=== PATIENT | female | born 1955 | race Caucasian/White ===

== ENCOUNTER 2017-10-04 15:07 | Inpatient (IN) | END 2017-10-20 15:15 | disposition home health service (06) | DRG 673 ==

== ENCOUNTER 2018-01-31 20:22 | Observation (INO) | END 2018-02-01 11:30 | disposition home or self-care (01) ==

== ENCOUNTER 2018-02-24 20:00 | Emergency (ER) | END 2018-02-24 23:47 | disposition home or self-care (01) ==

== ENCOUNTER 2018-12-09 06:48 | Emergency (ER) | payer OTHER ==
[~2018-12-09] VITALS: Ht 165.1 cm; Wt 70.0 kg
[~2018-12-09 06:48] MED LIST: ATOR40TA68 PO; BEN25 PO; CALC667C PO; CHOL400T10 PO; CLON-379 PO; FOLI-49 PO; GABA100C14 PO; GABA300C16 PO; HYDR-3671 PO; INSU100I33 SC; METO-448 PO; NEPH PO
[2018-12-09 07:02] VITALS: Ht 165.1 cm; Wt 70.0 kg
--- NOTE | 2018-12-09 07:59 | ERD ---
ER Documentation Chief Complaint Chief Complaint Numbness left arm since yesterday 11am after dialysis HPI This is a 63-year-old female with a history of hypertension, peripheral neuropathy, end-stage renal disease, hyperlipidemia who presents to the emergency room for evaluation of numbness and tingling in the left arm and left lower extremity. The patient states that she has had these symptoms on and off since 11 AM on December 08. The patient does state that it does feel similar to previous neuropathy. She was at her dialysis center and was instructed to come to the emergency room for further evaluation. The patient denies any weakness, she denies any chest pain or shortness of breath or nausea or vomiting. ROS All systems reviewed and are negative except as per history of present illness. Medications Home Meds Reported Medications Clonidine Hcl* (Clonidine Hcl*) 0.1 Mg Tab, 0.1 MG PO NEEDED, TAB 08/31/18 Cholecalciferol* (Vitamin D*) 400 Unit Tablet, 400 UNIT PO DAILY, TAB 08/31/18 Folic Acid* (Folic Acid*) 1 Mg Tablet, 1 MG PO DAILY, TAB 08/31/18 Insulin Glargine,Hum.rec.anlog (Basaglar Kwikpen U-100) 100 Unit/1 Ml Insuln.pen, 7 UNIT SC QHS, EA 08/31/18 Atorvastatin* (Atorvastatin*) 40 Mg Tablet, 40 MG PO QHS, #30 TAB 08/31/18 Hydralazine Hcl* (Hydralazine Hcl*) 25 Mg Tab, 25 MG PO Q8, #90 TAB 08/31/18 Calcium Acetate* (Calcium Acetate*) 667 Mg Capsule, 1334 MG PO WITH MEALS, #60 CAP 08/31/18 Gabapentin* (Gabapentin*) 300 Mg Capsule, 300 MG PO QHS, #60 CAP 08/31/18 Gabapentin* (Gabapentin*) 100 Mg Capsule, 100 MG PO BID, #90 CAP 08/31/18 Diphenhydramine Hcl* (Benadryl*) 25 Mg Cap, 25 MG PO BID PRN for ITCHING, CAP 08/31/18 Metoprolol Tartrate* (Lopressor*) 25 Mg Tab, 25 MG PO BID, #60 TAB 08/31/18 Multivit/Ca Carb/B Cmplx/Fa* (Madison-Agustin*) 1 Tab Tab, 1 TAB PO DAILY, TAB 08/31/18 Allergies Allergies: Coded Allergies: No Known Allergy (Unverified , 08/31/18) PMhx/Soc History of Surgery: Yes (2 C SECTION LYPOSECTION HEAMOROIDECTOMY APENDECTOMY) Anesthesia Reaction: Yes Hx Neurological Disorder: Yes (ANXIETY) Hx Respiratory Disorders: No Hx Cardiac Disorders: Yes (HTN) Hx Psychiatric Problems: Yes (ANXIETY) Hx Miscellaneous Medical Probl: Yes (ON DIALYSIS) Hx Alcohol Use: No Hx Substance Use: No Hx Tobacco Use: No Smoking Status: Never smoker Physical Exam Vitals Vital Signs Date Temp Pulse Resp B/P (MAP) Pulse Ox O2 O2 Flow FiO2 Time Delivery Rate 12/09/18 97.8 77 18 164/61 96 07:02 (95) Physical Exam INITIAL VITAL SIGNS: Reviewed by me GENERAL: The patient is well developed and appropriate for usual state of health in no apparent distress HEENT: Pupils equal, round, and reactive to light. EOMI. There is no scleral icterus. NECK: C-spine is soft and supple, there is no meningismus. There is no cervical lymphadenopathy. LUNGS: Clear to auscultation bilaterally. There are no rales, wheezes or rhonchi. HEART: Regular rate and rhythm, no murmurs, clicks, rubs or gallops. ABDOMEN: Soft, non-tender, non-distended. There are bowel sounds in all four quadrants. No rebound or guarding. EXTREMITIES: There is no peripheral cyanosis or edema. No focal swelling or erythema. NEUROLOGICAL: The patient moves all four extremities with 5/5 strength. Cranial nerves II - XII are intact. Normal gait. Alert and oriented person place and time with no focal neurological deficits. Sensation is intact and symmetric in upper and lower extreme is bilaterally SKIN: Dialysis catheter in right anterior chest wall, there is no apparent rash or petechiae. HEME/LYMPHATIC: There is no evidence of excessive bruising or lymphedema. PSYCHIATRIC: The patient does not appear anxious or depressed. Result Diagram: 12/09/18 0750 12/09/18 0833 Results 24 hrs Laboratory Tests Test 12/09/18 07:50 12/09/18 08:33 White Blood Count 7.6 10^3/ul Red Blood Count 3.86 10^6/ul Hemoglobin 12.0 g/dl Hematocrit 37.6 % Mean Corpuscular Volume 97.4 fl Mean Corpuscular Hemoglobin 31.1 pg Mean Corpuscular Hemoglobin Concent 31.9 g/dl Red Cell Distribution Width 16.3 % Platelet Count 193 10^3/UL Mean Platelet Volume 11.4 fl Immature Granulocytes % 0.500 % Neutrophils % 78.8 % Lymphocytes % 11.9 % Monocytes % 8.0 % Eosinophils % 0.0 % Basophils % 0.8 % Nucleated Red Blood Cells % 0.0 /100WBC Immature Granulocytes # 0.040 10^3/ul Neutrophils # 6.0 10^3/ul Lymphocytes # 0.9 10^3/ul Monocytes # 0.6 10^3/ul Eosinophils # 0.0 10^3/ul Basophils # 0.1 10^3/ul Nucleated Red Blood Cells # 0.0 10^3/ul Sodium Level 144 mmol/L Potassium Level 5.5 mmol/L Chloride Level 100 mmol/L Carbon Dioxide Level 32 mmol/L Anion Gap 12 Blood Urea Nitrogen 44 mg/dl Creatinine 8.50 mg/dl Est Glomerular Filtrat Rate mL/min 5 mL/min Glucose Level 125 mg/dl Calcium Level 9.9 mg/dl Total Bilirubin 0.3 mg/dl Direct Bilirubin 0.00 mg/dl Indirect Bilirubin 0.3 mg/dl Aspartate Amino Transf (AST/SGOT) 14 IU/L Alanine Aminotransferase (ALT/SGPT) 15 IU/L Alkaline Phosphatase 99 IU/L Total Protein 7.9 g/dl Albumin 4.2 g/dl Globulin 3.70 g/dl Albumin/Globulin Ratio 1.13 Procedures/MDM This 63-year-old female presents to the ER for evaluation of numbness and tingling in the left upper extremity left lower extremity. On my exam the pat ient had no focal neurological deficits, she is alert and oriented x4 with 5 out of 5 strength in upper lower extremity's bilaterally. The patient was at dialysis and was complaining of some numbness and was sent to the ER for evaluation. The patient has no signs of CVA on my exam. She is on her cell phone as I am doing an examination and eating popcorn. The patient had a CT of the brain which is normal, lab work shows no acute abnormalities and the patient is requesting to go home. She will be discharged at this time with strict return precautions. She is on gabapentin and I advised her to continue taking and follow-up with her primary care for possible medication adjustment as she is likely suffering from peripheral neuropathy Departure Diagnosis: Primary Impression: Numbness Additional Impressions: Peripheral neuropathy End stage renal disease Condition: Fair JUSTYN HIRSCH DO December 09, 2018 07:59
[2018-12-09 09:23] VITALS: BP 152/94; PULSE 89; RESP 18
== END 2018-12-09 09:44 | disposition home or self-care (01) ==
LOC: E/R 06:48
DX: R20.0 Anesthesia of skin (principal); I12.0 Hypertensive chronic kidney disease with stage 5 chronic kidney disease or end stage renal disease; G62.9 Polyneuropathy, unspecified; N18.6 End stage renal disease; E11.22 Type 2 diabetes mellitus with diabetic chronic kidney disease; Z79.4 Long term (current) use of insulin; Z99.2 Dependence on renal dialysis
CPT/HCPCS: 70450; 80053; 85025; Z7502